=== PATIENT | male | born 1955 | race Caucasian/White ===

== ENCOUNTER 2018-07-17 21:04 | Emergency (ER) | payer MEDICAID ==
[~2018-07-17] VITALS: Ht 185.4 cm; Wt 84.1 kg
[2018-07-17] MEDS ORDERED: DABI75CA3 PO (21:08)
[2018-07-17 21:30] LABS: EOSINOPHILS % (AUTO) 3.8 % (1.0-6.0); LYMPHOCYTES # (AUTO) 1.9 K/uL (1.0-4.8); LYMPHOCYTES % (AUTO) 31.8 % (22.0-44.0); MEAN CORPUSCULAR HGB CONC 33.2 G/dL (31.0-37.0); MEAN CORPUSCULAR VOLUME 87 fL (80-100); MONOCYTES # (AUTO) 0.5 K/uL (0.1-1.0); NEUTROPHILS # (AUTO) 3.3 K/uL (1.8-7.7); NEUTROPHILS % (AUTO) 54.4 % (40.0-70.0); PLATELET COUNT (AUTO) 293 K/uL (150-450); RED BLOOD CELL COUNT(AUTO) 4.12 MIL/uL (4.50-5.90); RED CELL DISTRIBUTION WIDTH 16.8 % (11.5-14.5)
[2018-07-17 21:42] LABS: ANION GAP 11 mmol/L (8-16); CALCIUM, TOTAL 9.2 mg/dL (8.8-10.5); CARBON DIOXIDE 26 mmol/L (22-29); CHLORIDE 108 mmol/L (98-107); CREATININE 1.19 mg/dL (0.60-1.30); GLOMERULAR FILTR. RATE CALC > 60 mL/min (>60); GLUCOSE,RANDOM 106 mg/dL (70-110); POTASSIUM 3.9 mmol/L (3.5-5.1); SODIUM SERUM 145 mmol/L (136-145); UREA NITROGEN, BLOOD 14 mg/dL (7-18)
[2018-07-17 21:48] LABS: ALANINE AMINOTRANSFERASE 40 U/L (12-78); ALBUMIN 3.6 g/dL (3.4-5.0); ALKALINE PHOSPHATASE 61 U/L (46-116); ASPARTATE AMINOTRANSFERASE 31 U/L (15-37); BILIRUBIN,TOTAL 0.2 mg/dL (0.1-1.0); CREATINE KINASE, TOTAL ONLY 46 U/L (39-308); LIPASE 349 U/L (73-393)
[2018-07-17 21:55] LABS: B-TYPE NATRIURETIC PEPTIDE 21 pg/mL (0-100)
[2018-07-18] MEDS ORDERED: DILTIAZEM HCL 5 MG/ML 5 ML VIAL IVP ONE (00:45)
[2018-07-18 03:11] LABS: APPEARANCE,URINE CLEAR (CLEAR); BILIRUBIN,URINE NEGATIVE (NEGATIVE); GLUCOSE, URINE (UA) NEGATIVE (NEGATIVE); KETONES,URINE TRACE mg/dL (NEGATIVE); LEUKOCYTE ESTERASE ,URINE NEGATIVE (NEGATIVE); NITRATE,URINE NEGATIVE (NEGATIVE); OCCULT BLOOD,URINE NEGATIVE (NEGATIVE); PROTEIN,URINE NEGATIVE (NEGATIVE)
[2018-07-18 03:53] VITALS: BP 117/76
[2018-07-20] MEDS ORDERED: BUPR-93 PO (02:34)
[2018-07-20] MEDS ORDERED: FLUO-191 PO (02:34)
[2018-07-22] MEDS ORDERED: ATOR20TA86 PO (12:35)
[2018-07-22] MEDS ORDERED: DABI150 PO (12:36)
== END 2018-07-18 04:03 | disposition home or self-care (01) ==
LOC: EMS 21:05
DX: I48.91 Unspecified atrial fibrillation (principal); F17.210 Nicotine dependence, cigarettes, uncomplicated; F19.90 Other psychoactive substance use, unspecified, uncomplicated
CPT/HCPCS: 36415; 71045; 80053; 81003; 82550; 83690; 83880; 84484; 85025; 93005; 96374; 99284; J3490

== ENCOUNTER 2018-07-26 16:37 | Inpatient (IN) | payer MEDICAID ==
[~2018-07-26] VITALS: Ht 182.9 cm; Wt 81.0 kg
[~2018-07-26 16:37] MED LIST: ATOR20TA86 PO; BUPR-93 PO; DABI150 PO; FLUO-191 PO
[2018-07-26 17:16] LABS: BASOPHILS % (AUTO) 0.6 % (0.0-2.0); EOSINOPHILS % (AUTO) 1.5 % (1.0-6.0); HEMATOCRIT 37.6 % (41-53); HEMOGLOBIN 12.4 g/dL (13.5-17.5); LYMPHOCYTES # (AUTO) 1.3 K/uL (1.0-4.8); LYMPHOCYTES % (AUTO) 18.9 % (22.0-44.0); MEAN CORPUSCULAR HEMOGLOBIN 28.6 pg (26.0-34.0); MEAN CORPUSCULAR HGB CONC 32.9 G/dL (31.0-37.0); MEAN CORPUSCULAR VOLUME 87 fL (80-100); MONOCYTES % (AUTO) 13.5 % (2.0-9.0); NEUTROPHILS # (AUTO) 4.6 K/uL (1.8-7.7); NEUTROPHILS % (AUTO) 65.5 % (40.0-70.0); PLATELET COUNT (AUTO) 361 K/uL (150-450); RED BLOOD CELL COUNT(AUTO) 4.34 MIL/uL (4.50-5.90); RED CELL DISTRIBUTION WIDTH 16.6 % (11.5-14.5)
[2018-07-26 17:30] LABS: ANION GAP 13 mmol/L (8-16); CALCIUM, TOTAL 9.3 mg/dL (8.8-10.5); CARBON DIOXIDE 19 mmol/L (22-29); CHLORIDE 107 mmol/L (98-107); CREATININE 0.98 mg/dL (0.60-1.30); GLOMERULAR FILTR. RATE CALC > 60 mL/min (>60); GLUCOSE,RANDOM 89 mg/dL (70-110); SODIUM SERUM 139 mmol/L (136-145); UREA NITROGEN, BLOOD 13 mg/dL (7-18)
[2018-07-26 17:38] LABS: ALANINE AMINOTRANSFERASE 23 U/L (12-78); ALBUMIN 3.6 g/dL (3.4-5.0); ALKALINE PHOSPHATASE 54 U/L (46-116); ASPARTATE AMINOTRANSFERASE 18 U/L (15-37); BILIRUBIN,TOTAL 0.5 mg/dL (0.1-1.0); TOTAL PROTEIN, SERUM 7.5 g/dL (6.4-8.2)
[2018-07-26] MEDS ORDERED: DILTIAZEM HCL 5 MG/ML 5 ML VIAL IVP ONE (18:45)
[2018-07-26] MEDS ORDERED: SODIUM CHLORIDE 0.9% 1,000 ML IV ONE (18:45)
[2018-07-26 19:14] LABS: AMPHET/METH SCREEN,URINE NEGATIVE (NEGATIVE); BARBITURATE SCREEN, URINE NEGATIVE (NEGATIVE); BENZODIAZEPINES SCREEN,URINE POSITIVE (NEGATIVE); CANNABINOID SCREEN,URINE NEGATIVE (NEGATIVE); COCAINE SCREEN,URINE NEGATIVE (NEGATIVE); METHADONE SCREEN, URINE NEGATIVE (NEGATIVE); OPIATE SCREEN,URINE NEGATIVE (NEGATIVE)
[2018-07-26 19:15] LABS: PHENCYCLIDINE SCREEN,URINE NEGATIVE (NEGATIVE)
[2018-07-26] MEDS ORDERED: 0.9% SODIUM CHLORIDE 10 ML SYRINGE IVP PRN ×2 (20:15→21:45)
[2018-07-26] MEDS ORDERED: DIGOXIN 250 MCG/ML 2 ML AMP IVP ONE (20:15)
[2018-07-26] MEDS ORDERED: ACETAMINOPHEN 325 MG TABLET PO PRN (20:15)
[2018-07-26] MEDS ORDERED: ONDANSETRON HCL 4 MG/2 ML VIAL IVP PRN ×2 (20:15→21:45)
[2018-07-26 21:27] VITALS: BP 111/63
[2018-07-26] MEDS: DABIGATRAN ETEXILATE MESYLATE 150 MG CAPSULE PO SCH (23:16)
[2018-07-26] MEDS: ZOLPIDEM TARTRATE 5 MG TABLET PO PRN (23:16)
[2018-07-27 00:07] VITALS: BP 122/74
[2018-07-27 05:29] VITALS: BP 109/54
[2018-07-27 06:04] LABS: BASOPHILS % (AUTO) 0.8 % (0.0-2.0); HEMATOCRIT 32.4 % (41-53); HEMOGLOBIN 10.9 g/dL (13.5-17.5); LYMPHOCYTES # (AUTO) 1.6 K/uL (1.0-4.8); LYMPHOCYTES % (AUTO) 29.1 % (22.0-44.0); MEAN CORPUSCULAR HEMOGLOBIN 28.9 pg (26.0-34.0); MEAN CORPUSCULAR HGB CONC 33.5 G/dL (31.0-37.0); MEAN CORPUSCULAR VOLUME 86 fL (80-100); MONOCYTES # (AUTO) 0.7 K/uL (0.1-1.0); MONOCYTES % (AUTO) 12.7 % (2.0-9.0); NEUTROPHILS # (AUTO) 2.9 K/uL (1.8-7.7); NEUTROPHILS % (AUTO) 54.4 % (40.0-70.0); PLATELET COUNT (AUTO) 300 K/uL (150-450); RED BLOOD CELL COUNT(AUTO) 3.76 MIL/uL (4.50-5.90); RED CELL DISTRIBUTION WIDTH 16.2 % (11.5-14.5)
[2018-07-27 06:26] LABS: ALANINE AMINOTRANSFERASE 17 U/L (12-78); ALBUMIN 2.8 g/dL (3.4-5.0); ALKALINE PHOSPHATASE 44 U/L (46-116); ANION GAP 11 mmol/L (8-16); ASPARTATE AMINOTRANSFERASE 16 U/L (15-37); BILIRUBIN,TOTAL 0.4 mg/dL (0.1-1.0); CALCIUM, TOTAL 8.4 mg/dL (8.8-10.5); CARBON DIOXIDE 21 mmol/L (22-29); CHLORIDE 108 mmol/L (98-107); CREATININE 0.76 mg/dL (0.60-1.30); GLOMERULAR FILTR. RATE CALC > 60 mL/min (>60); GLUCOSE,RANDOM 89 mg/dL (70-110); POTASSIUM 3.9 mmol/L (3.5-5.1); SODIUM SERUM 140 mmol/L (136-145); TOTAL PROTEIN, SERUM 6.1 g/dL (6.4-8.2); UREA NITROGEN, BLOOD 11 mg/dL (7-18)
[2018-07-27 07:16] VITALS: BP 114/59
[2018-07-27] MEDS: FLUoxetine HCL 20 MG CAPSULE PO SCH (08:01)
[2018-07-27] MEDS: DABIGATRAN ETEXILATE MESYLATE 150 MG CAPSULE PO SCH ×2 (08:01→19:58)
[2018-07-27] MEDS: PANTOPRAZOLE SODIUM 40 MG/VIAL IVP SCH (08:01)
[2018-07-27] MEDS: DOCUSATE SODIUM 100 MG CAPSULE PO SCH ×3 (08:01→19:59)
[2018-07-27] MEDS: ATORVASTATIN CALCIUM 20 MG TABLET PO SCH (08:02)
[2018-07-27] MEDS: BuPROPion HCL XL 150 MG ER TABLET PO SCH (08:02)
[2018-07-27 11:36] VITALS: BP 108/64
[2018-07-27 15:59] VITALS: BP 90/65
[2018-07-27] MEDS: DILTIAZEM HCL 30 MG TABLET PO SCH (16:00)
[2018-07-27 19:57] VITALS: BP 95/58
[2018-07-27] MEDS: ZOLPIDEM TARTRATE 5 MG TABLET PO PRN (22:13)
[2018-07-28] VITALS (11 sets, daily range): BP systolic 96–113; BP diastolic 60–75
[2018-07-28] MEDS: DILTIAZEM HCL 30 MG TABLET PO SCH ×5 (08:00→23:33)
[2018-07-28] MEDS: DOCUSATE SODIUM 100 MG CAPSULE PO SCH ×2 (09:00→19:45)
[2018-07-28] MEDS: PANTOPRAZOLE SODIUM 40 MG/VIAL IVP SCH (09:24)
[2018-07-28] MEDS: DABIGATRAN ETEXILATE MESYLATE 150 MG CAPSULE PO SCH ×2 (09:25→19:54)
[2018-07-28] MEDS: BuPROPion HCL XL 150 MG ER TABLET PO SCH (09:25)
[2018-07-28] MEDS: FLUoxetine HCL 20 MG CAPSULE PO SCH (09:25)
[2018-07-28] MEDS: ATORVASTATIN CALCIUM 20 MG TABLET PO SCH (09:25)
[2018-07-28] MEDS ORDERED: ACETAMINOPHEN 325 MG TABLET PO PRN (13:15)
[2018-07-28] MEDS: OxyCODONE HCL/ACETAMINOPHEN 5-325 MG TABLET PO PRN ×2 (13:23→19:42)
[2018-07-28] MEDS: ZOLPIDEM TARTRATE 5 MG TABLET PO PRN (23:11)
[2018-07-29] VITALS (7 sets, daily range): BP systolic 95–147; BP diastolic 59–81
[2018-07-29] MEDS: OxyCODONE HCL/ACETAMINOPHEN 5-325 MG TABLET PO PRN ×4 (01:57→20:23)
[2018-07-29] MEDS: DILTIAZEM HCL 30 MG TABLET PO SCH ×3 (07:58→23:51)
[2018-07-29] MEDS: DABIGATRAN ETEXILATE MESYLATE 150 MG CAPSULE PO SCH ×2 (07:58→20:19)
[2018-07-29] MEDS: PANTOPRAZOLE SODIUM 40 MG/VIAL IVP SCH (07:58)
[2018-07-29] MEDS: FLUoxetine HCL 20 MG CAPSULE PO SCH (07:59)
[2018-07-29] MEDS: BuPROPion HCL XL 150 MG ER TABLET PO SCH (07:59)
[2018-07-29] MEDS: DOCUSATE SODIUM 100 MG CAPSULE PO SCH ×2 (09:00→20:19)
[2018-07-29] MEDS: ATORVASTATIN CALCIUM 20 MG TABLET PO SCH (12:01)
[2018-07-30] VITALS (8 sets, daily range): BP systolic 95–117; BP diastolic 63–76
[2018-07-30] MEDS ORDERED: BENZOCAINE 20% 50 MCG/SPRAY 57 GM ONE (09:22)
[2018-07-30] MEDS: ATORVASTATIN CALCIUM 20 MG TABLET PO SCH (10:44)
[2018-07-30] MEDS: DILTIAZEM HCL 30 MG TABLET PO SCH ×3 (10:44→23:38)
[2018-07-30] MEDS: DOCUSATE SODIUM 100 MG CAPSULE PO SCH ×2 (10:44→21:00)
[2018-07-30] MEDS: BuPROPion HCL XL 150 MG ER TABLET PO SCH (10:44)
[2018-07-30] MEDS: DABIGATRAN ETEXILATE MESYLATE 150 MG CAPSULE PO SCH ×2 (10:44→21:21)
[2018-07-30] MEDS: FLUoxetine HCL 20 MG CAPSULE PO SCH (10:44)
[2018-07-30] MEDS: PANTOPRAZOLE SODIUM 40 MG/VIAL IVP SCH (10:44)
[2018-07-30] MEDS: OxyCODONE HCL/ACETAMINOPHEN 5-325 MG TABLET PO PRN ×3 (10:45→23:38)
[2018-07-30] MEDS: ZOLPIDEM TARTRATE 5 MG TABLET PO PRN (21:24)
[2018-07-31 05:05] VITALS: BP 97/64
[2018-07-31] MEDS: OxyCODONE HCL/ACETAMINOPHEN 5-325 MG TABLET PO PRN ×2 (05:29→11:54)
[2018-07-31 07:41] VITALS: BP 104/59
[2018-07-31] MEDS: ATORVASTATIN CALCIUM 20 MG TABLET PO SCH (08:09)
[2018-07-31] MEDS: DOCUSATE SODIUM 100 MG CAPSULE PO SCH (08:09)
[2018-07-31] MEDS: DABIGATRAN ETEXILATE MESYLATE 150 MG CAPSULE PO SCH (08:09)
[2018-07-31] MEDS: BuPROPion HCL XL 150 MG ER TABLET PO SCH (08:09)
[2018-07-31] MEDS: DILTIAZEM HCL 30 MG TABLET PO SCH (08:09)
[2018-07-31] MEDS: PANTOPRAZOLE SODIUM 40 MG/VIAL IVP SCH (08:10)
[2018-07-31] MEDS: FLUoxetine HCL 20 MG CAPSULE PO SCH (08:13)
[2018-07-31 11:20] VITALS: BP 96/63
[2018-07-31] MEDS ORDERED: FLUO-126 PO (11:42)
[2018-07-31] MEDS ORDERED: DILT30TA3 PO (11:42)
== END 2018-07-31 13:45 | disposition home or self-care (01) | DRG 201 ==
LOC: EMS 16:37 → 5N 20:17 → 5S 07-29 17:20
PROVIDERS: ADMIT Internal Medicine; ATTEND Internal Medicine
PROC: 5A2204Z Restoration of Cardiac Rhythm, Single (ICD-10-PCS; principal; 2018-07-30)
PROC: B24BZZ4 Ultrasonography of Heart with Aorta, Transesophageal (ICD-10-PCS; 2018-07-30)
DX: I48.91 Unspecified atrial fibrillation (principal); E78.5 Hyperlipidemia, unspecified; F19.10 Other psychoactive substance abuse, uncomplicated; F32.9 Major depressive disorder, single episode, unspecified; F41.9 Anxiety disorder, unspecified; F17.210 Nicotine dependence, cigarettes, uncomplicated; Z86.73 Personal history of transient ischemic attack (TIA), and cerebral infarction without residual deficits
CPT/HCPCS: 83735; 87081; 92960; 93005; 93312; 96374; 99291; C9113; G0378; J1160; J3490; J7030